=== PATIENT | female | born 1960 | race Caucasian/White ===

== ENCOUNTER → 2025-06-05 08:29 | Outpatient (REF) | payer BC, SELFPAY ==
[2025-06-05 12:24] LABS: Hematocrit 38.8 % (37.0-47.0); Hemoglobin 13.0 g/dL (12.0-16.0); Mean Corp Hgb Conc. 33.5 g/dL (33.0-37.0); Mean Corpuscular Volume 90.9 fL (81.0-99.0); Nucleated Red Blood Cells % 0 %; Platelet Count 233 10^3/uL (130-400); Red Cell Dist. Width 12.8 % (11.5-14.5)
[2025-06-05 13:12] LABS: ALT (SGPT) 22 U/L (0-35); AST (SGOT) 26 U/L (14-36); Albumin 4.4 g/dl (3.5-5.0); Alkaline Phosphatase 39 U/L (38-126); Blood Urea Nitrogen 20 mg/dl (7-17); Calcium 9.4 mg/dl (8.4-10.2); Carbon Dioxide 28 mmol/L (22-30); Chloride 105 mmol/L (98-107); Glucose 97 mg/dl (70-99); Potassium 4.7 mmol/L (3.5-5.1); Sodium 139 mmol/L (135-145); Total Protein 7.1 g/dl (6.3-8.2); eGFR > 60.00
[2025-06-05 14:00] LABS: Vitamin D, 25-OH*** 68.5 ng/mL (30-80)
[2025-06-05 14:13] LABS: TSH 0.66 uIU/ml (0.47-4.68)
[2025-06-06 21:05] LABS: Hepatitis C Antibody Negative (Negative)
[2025-06-06 22:01] LABS: CA 19-9 30 U/mL (<=35)
== END ==
LOC: HWRAD 08:29
PROVIDERS: ATTENDING PHYSICIAN Internal Medicine
DX: M25.561 Pain in right knee (principal); E03.9 Hypothyroidism, unspecified; Z11.59 Encounter for screening for other viral diseases; Z00.00 Encounter for general adult medical examination without abnormal findings; E55.9 Vitamin D deficiency, unspecified; K86.2 Cyst of pancreas
CPT/HCPCS: 36415; 73564; 80053; 82306; 84439; 84443; 85025; 86301; 86803